=== PATIENT | male | born 1960 | race Caucasian/White ===

== ENCOUNTER 2017-10-02 11:00 | Emergency (ER) | payer OTHER, SELFPAY ==
[2017-10-02 11:01] VITALS: BP 147/84; PULSE 75; RESP 18; TEMP 36.6; O2SAT 95; BMI 38.7
--- NOTE | 2017-10-02 11:04 | RAD_ITS ---
STUDY: X-RAY - RIGHT SHOULDER REASON FOR EXAM: Male, 57 years old. Right-sided shoulder pain. TECHNIQUE: Four view(s) of the shoulder. COMPARISON: Prior comparison studies are not available for review at this time. FINDINGS: There is mild degenerative arthrosis of the glenohumeral articulation. There is degenerative arthrosis of the acromioclavicular joint without inferior osseous spur formation. Normal acromion. There is an old fracture of the midclavicle. There is demineralization of the humerus and visualized osseous structures. The soft tissue structures are unremarkable. The patient has had previous surgery on the cervical spine. There are multiple old right-sided rib fractures. The visualized right lung appears to be clear. RAD/Shoulder min 2 Views IMPRESSION: 1. Degenerative arthropathy of the right shoulder. 2. Probably old fractures of the right clavicle and right-sided ribs. 3. Sequela of previous surgery on the cervical spine. Electronically Signed: Samantha Coleman MD at 11:53 EDT , Service support ,
--- NOTE | 2017-10-02 12:07 | RAD_ITS ---
STUDY: X-RAY - LEFT KNEE REASON FOR EXAM: Male, 57 years old. Status post fall TECHNIQUE: 4 view(s) of the knee. COMPARISON: None. FINDINGS: Normal visualized distal femur. There is demineralization of the tibia and fibula. There is arthrosis of the proximal tibiofibular articulation. There is moderate degenerative arthrosis of the medial femorotibial compartment with moderate joint space narrowing. There is moderate degenerative arthrosis of the lateral femorotibial compartment with moderate joint space narrowing. There is moderate degenerative arthrosis of the patellofemoral articulation. There is mild superficial soft tissue edema. RAD/Knee 4 or More Views IMPRESSION: Degenerative arthrosis. No visualized fracture. Electronically Signed: Day Kasper MD at 13:43 EDT Tel , Service support ,
--- NOTE | 2017-10-02 12:17 | ED.VIS.GEN ---
History of Present Illness Chief Complaint: Fall Informant: Patient Onset: Days - 2 Context: Sudden Onset - Fall, pulled over by his dog while trying to walk it. Landed on his right shoulder and hit his left knee as well. Has been walking okay since then. Timing: Continuous Quality: Ache/throbbing Current Severity: Moderate Maximum Severity: Severe Worsened by: Moving Relieved by: Resting Narrative: States that this morning, he raised his right arm up over his head, and when he brought it back down he felt a sudden pop, with extreme pain in his right shoulder and radiating down to his hand. He said is the worst pain he has ever had. He called EMS, they put him on the caught and he is not sure what kind of movement he did, but it suddenly felt like it went back into socket and his pain went down significantly, the discomfort radiating down to his hand resolved. Past Medical History - Allergies and Home Meds Allergies/Adverse Reactions: Allergies iodine Allergy (Verified 10/02/17 11:04) Hives Penicillins Allergy (Verified 10/02/17 11:04) Hives Home Medications: Home Medications Medication Instructions Recorded Hydrocodone/Acetaminophen [[place] 1 - 2 ea PO 4X/DAY PRN PRN 3 Days 10/02/17 5-325 Tablet] #12 tab Primary Care Physician: Delilah Mayen [Primary Care Provider] - Past Medical History: None Lives: Spouse/ Significant Other Smoking Status: Never smoker Drugs: None Review of Systems All systems negative except as indicated Musculoskeletal: Reports: Extremity Pain - Right shoulder, left knee Neurological: Reports: Parasthesia - Transiently down right upper extremity, resolved now Physical Exam Vital Signs/Narrative: Vital Signs Temp Pulse Resp BP Pulse Ox 10/02/17 11:01 98 F 75 18 147/84 H 95 Inital Vital Signs reviewed: Yes General: Well nourished, Well developed Head: Normocephalic, Atraumatic Eyes: Perrl, EOMI ENT: Moist mucous membranes, No rhinorrhea Neck: Supple, Nontender Extremities: Tenderness - Right subacromial area. No deformities. No AC joint tenderness swelling. Able to abduct to 90?, but with pain. No anterior biceps tenderness. Negative Yergason. Left tibial tuberosity is tender and swollen, there is no deformity. Full range of motion of the knee without effusion. Healed anteromedial surgical scar. All ligaments stable including ACL and PCL, mild pain with stressing ACL but negative Danae. Negative posterior drawer. Skin: Normal color, No rash - No lacerations Neurological: Alert, Oriented x3, Cranial nerves II-XII grossly intact, Normal Strength, Normal Sensation, Normal Gait Psychological: Normal affect Diagnostic/Tx/Re-eval Impressions Shoulder X-Ray 10/02/17 11:04 IMPRESSION: 1. Degenerative arthropathy of the right shoulder. 2. Probably old fractures of the right clavicle and right-sided ribs. 3. Sequela of previous surgery on the cervical spine. Electronically Signed: Samantha Coleman MD at 11:53 EDT , Service support , 10/02/17 11:04 Xray Shoulder [Shoulder min 2 Views] [RAD] Stat 10/02/17 12:07 Knee 4 or More Views [RAD] Stat - Medical Decision Making Radiology agrees that right shoulder x-ray shows no acute abnormalities, namely no Hill-Sachs lesion and there is no dislocation. There is also no bony Bankart. He was placed in a sling and swath and given Vicodin, which helped some with the pain. On my interpretation his left knee x-ray is unremarkable, namely where he had the injury at the tibial tuberosity. He is able to ambulate without difficulty on it. He will be given a prescription for Vicodin, it is certainly possible that he dislocated and self reduced it, however it is also possible that he subluxed the joint and did not fully dislocate it. Will have him follow-up with orthopedics, he has seen Dr. Raygoza in the past. ED Disposition - Plan for ED Patient: Disposition: Home or Assisted Living Chief Complaint: Fall Diagnosis: Right shoulder injury, Contusion of left knee, initial encounter Instructions: ED Mechanical Fall, ED Dislocation Shoulder Redu, ED Sling and Swathe Prescriptions: Hydrocodone/Acetaminophen [[place] 5-325 Tablet] 1 - 2 ea PO 4X/DAY PRN PRN 3 Days #12 tab PRN Reason: Pain Referrals: Silverio Raygoza, [STAFF PHYSICIAN] - As soon as possible
--- NOTE | 2017-10-02 12:21 | ED.DCSUM_ITS ---
History of Present Illness Chief Complaint: Fall Informant: Patient Onset: Days - 2 Context: Sudden Onset - Fall, pulled over by his dog while trying to walk it. Landed on his right shoulder and hit his left knee as well. Has been walking okay since then. Timing: Continuous Quality: Ache/throbbing Current Severity: Moderate Maximum Severity: Severe Worsened by: Moving Relieved by: Resting Narrative: States that this morning, he raised his right arm up over his head, and when he brought it back down he felt a sudden pop, with extreme pain in his right shoulder and radiating down to his hand. He said is the worst pain he has ever had. He called EMS, they put him on the caught and he is not sure what kind of movement he did, but it suddenly felt like it went back into socket and his pain went down significantly, the discomfort radiating down to his hand resolved. Past Medical History - Allergies and Home Meds Allergies/Adverse Reactions: Allergies iodine Allergy (Verified 10/02/17 11:04) Hives Penicillins Allergy (Verified 10/02/17 11:04) Hives Home Medications: Home Medications Medication Instructions Recorded Hydrocodone/Acetaminophen [[place] 1 - 2 ea PO 4X/DAY PRN PRN 3 Days 10/02/17 5-325 Tablet] #12 tab Primary Care Physician: Delilah Mayen [Primary Care Provider] - Past Medical History: None Lives: Spouse/ Significant Other Smoking Status: Never smoker Drugs: None Review of Systems All systems negative except as indicated Musculoskeletal: Reports: Extremity Pain - Right shoulder, left knee Neurological: Reports: Parasthesia - Transiently down right upper extremity, resolved now Physical Exam Vital Signs/Narrative: Vital Signs Temp Pulse Resp BP Pulse Ox 10/02/17 11:01 98 F 75 18 147/84 H 95 Inital Vital Signs reviewed: Yes General: Well nourished, Well developed Head: Normocephalic, Atraumatic Eyes: Perrl, EOMI ENT: Moist mucous membranes, No rhinorrhea Neck: Supple, Nontender Extremities: Tenderness - Right subacromial area. No deformities. No AC joint tenderness swelling. Able to abduct to 90?, but with pain. No anterior biceps tenderness. Negative Yergason. Left tibial tuberosity is tender and swollen, there is no deformity. Full range of motion of the knee without effusion. Healed anteromedial surgical scar. All ligaments stable including ACL and PCL, mild pain with stressing ACL but negative Danae. Negative posterior drawer. Skin: Normal color, No rash - No lacerations Neurological: Alert, Oriented x3, Cranial nerves II-XII grossly intact, Normal Strength, Normal Sensation, Normal Gait Psychological: Normal affect Diagnostic/Tx/Re-eval Impressions Shoulder X-Ray 10/02/17 11:04 IMPRESSION: 1. Degenerative arthropathy of the right shoulder. 2. Probably old fractures of the right clavicle and right-sided ribs. 3. Sequela of previous surgery on the cervical spine. Electronically Signed: Samantha Coleman MD at 11:53 EDT , Service support , 10/02/17 11:04 Xray Shoulder [Shoulder min 2 Views] [RAD] Stat 10/02/17 12:07 Knee 4 or More Views [RAD] Stat - Medical Decision Making Radiology agrees that right shoulder x-ray shows no acute abnormalities, namely no Hill-Sachs lesion and there is no dislocation. There is also no bony Bankart. He was placed in a sling and swath and given Vicodin, which helped some with the pain. On my interpretation his left knee x-ray is unremarkable, namely where he had the injury at the tibial tuberosity. He is able to ambulate without difficulty on it. He will be given a prescription for Vicodin , it is certainly possible that he dislocated and self reduced it, however it is also possible that he subluxed the joint and did not fully dislocate it. Will have him follow-up with orthopedics, he has seen Dr. Raygoza in the past. ED Disposition - Plan for ED Patient: Disposition: Home or Assisted Living Chief Complaint: Fall Diagnosis: Right shoulder injury, Contusion of left knee, initial encounter Instructions: ED Mechanical Fall, ED Dislocation Shoulder Redu, ED Sling and Swathe Prescriptions: Hydrocodone/Acetaminophen [[place] 5-325 Tablet] 1 - 2 ea PO 4X/DAY PRN PRN 3 Days #12 tab PRN Reason: Pain Referrals: Silverio Raygoza, [STAFF PHYSICIAN] - As soon as possible
[2017-10-02] MEDS: HYDROcodone Bitartrate/Apap 5/325 Tablet PO (12:23)
[2017-10-02 12:54] VITALS: BP 139/85; PULSE 88; RESP 16; O2SAT 94
== END 2017-10-02 13:51 | disposition home or self-care (01) ==
PROVIDERS: Emergency Provider Emergency Medicine; Family Provider Family Medicine; PCP Family Medicine
DX: S80.02XA Contusion of left knee, initial encounter (principal); S49.91XA Unspecified injury of right shoulder and upper arm, initial encounter; W18.30XA Fall on same level, unspecified, initial encounter; Y93.K1 Activity, walking an animal; Y92.89 Other specified places as the place of occurrence of the external cause; Y99.8 Other external cause status
CPT/HCPCS: 73030; 73564; 99283

== ENCOUNTER → 2022-06-21 | Outpatient (CLI) | payer OTHER, SELFPAY ==
--- NOTE | 2022-06-21 | IMM_PTH ---
PATIENT: JAYASHREE MAGALLANES LOC: [facility] U#:[id number] AGE/SX: 61/M ROOM: RE06/21/[address]: Dr. Naresh Edmond MD : 1960 BED: DIS: 06/21/2022 SPEC #: [id number] RECD: 06/23/22 13:18 STATUS: LESTER REEulogio #: [id number] FAISAL: 06/21/22 00:[address]: Naresh Edmond DEPT: IMMUNOHISTOCHEMISTRY RECD BY: Rita Tarango ENTERED: 06/23/22 13:19 SP TYPE: IMMUNO OTHR DR: Dr. Delilah Mayen MD Tissues: D - PROSTATE LEFT F - PROSTATE LEFT Procedures: 34BE12 (add) P40 (add) 34BE12 (initial) PHYSICIAN & INSTITUTION [place] [id number] SPECIMEN INFORMATION: Tissue Source: D - Left prostate, apex, core biopsy, F - Left prostate, base, core biopsy Clinical Info: Elevated PSA Specimen Number: [id number] D & F CPT code: 32350, 32838 x3 METHODOLOGY: Deparaffinized sections of prefer/formalin-fixed tissue or PAP/DQ stained slides are incubated with monoclonal/polyclonal antibodies/oligonucleotide probes. Localization is made via biotin free immunoperoxidase method. Appropriate controls are performed and reacted as expected. Results on target cell population are indicated in the following table: RESULTS: ANTIBODY / CLONE RESULT Block D P40 (BC28) negative * 34BE12 (34BE12) negative * Block F P40 (BC28) negative 34BE12 (34BE12) negative *?Positive in the area of HGPIN. These tests were developed and their performance characteristics determined by [facility]. They may not have been cleared or approved by the U.S. Food and Drug Administration. The FDA has determined that such clearance or approval is not necessary. The above immunohistochemical/dualISH markers are ordered and reviewed by the Pathologist. INTERPRETATION: D. Left prostate, apex, core biopsy: Adenocarcinoma. Focal high-grade prostatic intraepithelial neoplasia (HGPIN). Focal atypical small acinar proliferation (MICHAEL). F. Left prostate, base, core biopsy: Adenocarcinoma. AL:brandt 06/24/2022
--- NOTE | 2022-06-21 08:00 | PROSBIL_PTH ---
PATIENT: JAYASHREE MAGALLANES LOC: [facility] U#:[id number] AGE/SX: 61/M ROOM: RE06/21/[address]: Dr. Naresh Edmond MD : 1960 BED: DIS: 06/21/2022 SPEC #: [id number] RECD: 06/22/22 08:32 STATUS: LESTER [place]UST[place] #: [id number] FAISAL: 06/21/22 08:[address]: Naresh Edmond DEPT: SURGICAL PATHOLOGY RECD BY: Elvi Levy ENTERED: 06/22/22 08:33 SP TYPE: PROST BX CARMELINA DR: Dr. Delilah Mayen MD Tissues: A - PROSTATE RIGHT B - PROSTATE RIGHT C - PROSTATE RIGHT D - PROSTATE LEFT E - PROSTATE LEFT F - PROSTATE LEFT Procedures: PROSTATE BX HEADER OPERATION: Prostate biopsy PRE-OP DIAGNOSIS: Elevated PSA TISSUE SUBMITTED: A - Right apex, B - Right mid, C - Right base, D - Left apex, E - Left mid, F - Left base MICROSCOPIC DIAGNOSIS A. Right prostate, apex, core biopsy: Prostatic adenocarcinoma. Rachelle grade: 4+3=7 Number of cores involved: 2/2 Proportion of tissue involved: ~40% Perineural invasion: Not identified. Greatest tumor length: 0.8 cm B. Right prostate, mid, core biopsy: Prostatic tissue, negative for malignancy. C. Right prostate, base, core biopsy: Focal high-grade prostatic intraepithelial neoplasia (HGPIN). D. Left prostate, apex, core biopsy: Prostatic adenocarcinoma. Rachelle grade: 3+3=6 Number of cores involved: 1/2 Proportion of tissue involved: <5% Perineural invasion: Present, focal. Greatest tumor length: <0.1 cm Focal high-grade prostatic intraepithelial neoplasia (HGPIN). Focal atypical small acinar proliferation (MICHAEL). See comment. E. Left prostate, mid, core biopsy: Prostatic adenocarcinoma. Rachelle grade: 4+3=7 Number of cores involved: 2/2 Proportion of tissue involved: ~70% Perineural invasion: Present, focal. Greatest tumor length: 0.6 cm F. Left prostate, base, core biopsy: Prostatic adenocarcinoma. Dowell grade: 3+3=6 Number of cores involved: 1/2 Proportion of tissue involved: <5% Perineural invasion: Not identified. Greatest tumor length: 0.1 cm Focal high-grade prostatic intraepithelial neoplasia (HGPIN). See comment. SJ:brandt 06/23/2022 COMMENT D & F. Immunohistochemistry ([id number]) supports the above diagnosis. MICROSCOPIC DESCRIPTION Slides are reviewed. GROSS DESCRIPTION A - Received is one container designated prostate, right apex. The specimen consists of two elongated fragments of light alicea-white soft tissue each measuring 1.0 cm in length and 0.1 cm in diameter. The specimen is totally submitted in one cassette. B - Received is one container designated prostate, right mid. The specimen consists of two elongated fragments of light alicea-white soft tissue each measuring 1.0 cm in length and 0.1 cm in diameter. The specimen is totally submitted in one cassette. C - Received is one container designated prostate, right base. The specimen consists of two elongated fragments of light alicea-white soft tissue each measuring 1.0 cm in length and 0.1 cm in diameter. The specimen is totally submitted in one cassette. D - Received is one container designated prostate, left apex. The specimen consists of two elongated fragments of light alicea-white soft tissue each measuring 1.0 cm in length and 0.1 cm in diameter. The specimen is totally submitted in one cassette. E - Received is one container designated prostate, left mid. The specimen consists of two elongated fragments of light alicea-white soft tissue each measuring 1.5 cm in length and 0.1 cm in diameter. The specimen is totally submitted in one cassette. F - Received is one container designated prostate, left base. The specimen consists of two elongated fragments of light alicea-white soft tissue each measuring 1.0 cm in length and 0.1 cm in diameter. The specimen is totally submitted in one cassette. / LUIS CARLOS:brandt 06/22/2022 TC:0 [facility]: [id number] x6
== END | disposition home or self-care (01) ==
PROVIDERS: PCP Family Medicine; Referring Provider Urology; Visit Provider Urology
DX: C61 Malignant neoplasm of prostate (principal); R97.20 Elevated prostate specific antigen [PSA]
CPT/HCPCS: 88305; 88341; 88342; G0416

== ENCOUNTER → 2022-07-01 | Outpatient (CLI) | payer OTHER, SELFPAY ==
--- NOTE | 2022-07-01 09:54 | NM_ITS ---
CLINICAL: 61-year-old male with history of recent diagnosis of primary prostate carcinoma. WHOLE BODY 99m Tc MDP RADIONUCLIDE BONE SCINTIGRAPHY COMPARISON: None available FINDINGS: Following the intravenous administration of 25.2 mCi of 99m Tc MDP, whole body bone images reveal: 1. Increased radiopharmaceutical concentration is defined in the acromioclavicular and glenohumeral compartments of both shoulders, the left knee, the posterior compartment of the right ankle, the mid cervical spine posteriorly on the left, the sixth through 12th thoracic vertebra posteriorly on the left and right, third-fourth lumbar vertebra posteriorly on the right and left. 2. The remaining skeletal structures are scintigraphically unremarkable with normal-appearing renal images and urinary bladder activity identified. There is calcification of the right and left costochondral junction. NM/Bone Scan Whole Body IMPRESSION: 1. The increase in radiopharmaceutical described above in the bilateral shoulders, the left knee, the right ankle, the cervical, thoracic and lumbar spine is commensurate with degenerative arthritis. 2. No other scintigraphic elements are defined. There is no definitive scintigraphic evidence of diffuse axial skeletal metastatic disease on the current examination. Electronically Signed: Jong Veras, at 0:37 EST ,
== END | disposition home or self-care (01) ==
LOC: NM 09:53
PROVIDERS: PCP Family Medicine; Referring Provider Urology; Visit Provider Urology
DX: C61 Malignant neoplasm of prostate (principal)
CPT/HCPCS: 78306; A9503

== ENCOUNTER 2022-08-06 07:32 | Observation (INO) | payer OTHER, SELFPAY ==
--- NOTE | 2022-08-02 08:47 | EKG12_ITS ---
Test Reason : PREOP Blood Pressure : / mmHG Vent. Rate : 071 BPM Atrial Rate : 071 BPM P-R Int : 174 ms QRS Dur : 106 ms QT Int : 394 ms P-R-T Axes : 044 -07 021 degrees QTc Int : 428 ms Normal sinus rhythm Normal ECG Confirmed by HERBER MONTES DE OCA MD ([id number]), medical transcription editor JAVED COON ([id number]) on 08/03/2022 8:59:20 AM Referred By: FRANCISCA Confirmed By:HERBER MONTES DE OCA MD
[2022-08-02 09:25] LABS: Hematocrit 47.1 % (40-54); Hemoglobin 16.1 g/dL (13.0-16.5); Mean Corp Hgb Conc 34.2 g/dL (32-36); Mean Corpuscular Volume 87.9 fL (80-94); Mean Platelet Vol. 8.7 fl (6.2-12.0); Platelet Count 283 K/mm3 (150-450); RBC Distribution Width CV 12.5 % (11.6-14.6); RBC Distribution Width SD 40.3 fl (35.1-43.9); Red Blood Count 5.36 M/mm3 (4.6-6.2); White Blood Count 6.5 K/mm3 (4.4-11.0)
[2022-08-06] VITALS (12 sets, daily range): BP systolic 109–142; BP diastolic 62–83; PULSE 63–97; RESP 16–20; TEMP 36.1–37.6; O2SAT 94–98; BMI 40.5
--- NOTE | 2022-08-06 | PROST_PTH ---
PATIENT: JAYASHREE MAGALLANES LOC: [facility] U#:[id number] AGE/SX: 62/M ROOM: MT315 RE08/06/[address]: Dr. Naresh Edmond MD : 1960 BED: 1 DIS: 08/07/2022 SPEC #: [id number] RECD: 08/06/22 17:19 STATUS: LESTER MONTOYAEulogio #: [id number] FAISAL: 08/06/22 00:[address]: Naresh Edmond DEPT: SURGICAL PATHOLOGY RECD BY: Fernando Saavedra ENTERED: 08/09/22 09:19 SP TYPE: PROSTATE OTHR DR: Dr. Delilah Mayen MD Tissues: A - Lymph node of pelvis, NOS B - Lymph node of pelvis, NOS C - Adipose tissue D - Prostate, NOS Procedures: Surgery Specimen Level III Surgery Specimen Level V Surgery Specimen Level HEADER OPERATION: Lap robotic radical prostatectomy PRE-OP DIAGNOSIS: Rachelle 7 prostate cancer TISSUE SUBMITTED: A ? Left lymph node bundle, B ? Right lymph node bundle, C ? Fat over prostate, D - Prostate MICROSCOPIC DIAGNOSIS A. Left lymph node bundle, regional dissection: Nine out of nine lymph nodes, negative for metastatic carcinoma. B. Right lymph node bundle, regional dissection: Two out of two lymph nodes, negative for metastatic carcinoma. C. Fat over prostate: Negative for carcinoma. D. Prostate, radical prostatectomy: Prostatic adenocarcinoma. See cancer summary in the comment section. SJ:brandt 08/11/2022 COMMENT PROSTATE CANCER (RADICAL) SUMMARY: Procedure: Radical Prostatectomy Prostate Size: Weight: 70.4 gm Size: 4.0 cm transversely, 4.5 cm anterior-posteriorly and 4.0 cm craniocaudally Histologic Type: Acinar adenocarcinoma Histologic Grade: Grade group 4 (Rachelle score 5+3=8) Tertiary pattern 4 is also noted. Percent of Pattern 4: ~5% Percent of Pattern 5: ~80% Intraductal Carcinoma: Not identified Tumor Quantitation: Estimated percentage of prostate involved by tumor: ~5% Tumor size: Tumor involves left lobe prostate. It is measured microscopically and measures 1.6 x 1.5 x 1.0 cm. Extraprostatic Extension: Not identified Urinary Bladder Neck Invasion: Not identified Seminal Vesicle Invasion: Not identified Lymphvascular Invasion: Not identified Perineural Invasion: Present, focal Margins: Focally involved by invasive carcinoma. Linear length of positive margin: ~3 mm Location of positive margin: Left apical Rachelle pattern at positive margin: 3+4=7 Treatment Effect: No known presurgical therapy. Regional Lymph Nodes: Number of lymph nodes involved by carcinoma: 0 Total number of lymph nodes examined: 11 Additional Pathologic Findings: Focal high-grade prostatic intraepithelial neoplasia (HGPIN). Acute and chronic inflammation. Benign prostatic hyperplasia, glandular and stromal type. PATHOLOGIC STAGE: pT2 pN0 pMx The above summary is in compliance with [employer] (CAP) Cancer Protocols Checklist and [place] Joint Committee on Cancer (AJCC), Staging Manual, 8th Ed. Please make reference to previous specimen ([id number]) right prostate apex and left prostate apex, mid and base, core biopsies with diagnosis of ?prostatic adenocarcinoma.? Case has been reviewed in consultation with Dr. Short who concurs with the above diagnosis. IDC:[email or web address] MICROSCOPIC DESCRIPTION Slides are reviewed. GROSS DESCRIPTION A - Received in fixative is one container labeled with the patient's name and designated left lymph node bundle. The specimen consists of multiple pieces of yellow adipose tissue containing nodules consistent with lymph nodes measuring in aggregate 3.0 x 3.5 x 0.3 cm. The entire specimen is submitted in two cassettes. B - Received in fixative is one container labeled with the patient's name and designated right lymph node bundle. The specimen consists of a piece of yellow adipose tissue containing a nodule measuring 3.0 x 3.0 x 1.0 cm. The nodule consistent with lymph node measures 2.0 cm in greatest dimension. The entire specimen is submitted in two cassettes as follows: 1 ? nodule consistent with lymph node, 2 ? rest of the specimen. C - Received in fixative is one container labeled with the patient's name and designated fat over prostate. The specimen consists of multiple pieces of yellow adipose tissue that in aggregate measure 3.5 x 4.0 x 0.8 cm. No mass lesion is identified. Music Composer sections are submitted in one cassette. D - Received in fixative is one container labeled with the patient's name and designated prostate. The specimen consists of a radical prostatectomy specimen consisting of prostate and bilateral seminal vesicles and vas deferens. The specimen weighs 70.4 gm. The prostate measures 4.0 cm transversely, 4.5 cm anterior-posteriorly and 4.0 cm craniocaudally. The right seminal vesicle measures 3.0 x 2.5 x 1.5 cm and right vas deferens measures 2.5 cm in length and 0.5 cm in diameter. The left seminal vesicle measures 2.0 x 1.5 x 1.0 cm and the left vas deferens measures 3.0 cm in length and 0.5 cm in diameter. The prostate is inked as follows: anterior surface - yellow, posterior surface - black, right lateral surface - blue, left lateral surface - green. Sections do not reveal any obvious mass lesions. The bilateral seminal vesicles and vas deferens are inked as follows: Posterior surface bilateral seminal vesicle and vas deferens - black, anterior surface right seminal vesicle and vas deferens - blue and anterior left seminal vesicle and vas deferens - green. Sections do not reveal any obvious mass lesions. Music Composer sections are submitted in 20 cassettes as follows: 1 - right seminal vesicle and vas deferens, 2 - left seminal vesicle and vas deferens, 3 - apical (urethral) margin, enface, 4 - bladder neck and basal portion of prostate margin, enface, 5-9 - apical portion prostate, 10-13 - middle portion prostate, 14-20 - basal portion prostate. / AL:brandt 08/09/2022 More sections are submitted in cassettes -30. / AL:brandt 08/10/2022 TC:0 CPT: 02822, 69424 x2, 82159
[2022-08-06] MEDS: Lactated Ringers 1,000 ML 15 ML IV (06:38)
[2022-08-06] MEDS: Cefazolin 2 GM in 0.9% Normal Saline 100 ML IV (07:30)
--- NOTE | 2022-08-06 07:39 | HP.PCM_ITS ---
HPI - General General Date of Admission: 08/06/22 Chief Complaint: Prostate cancer HPI Narrative JAYASHREE MAGALLANES, is a 62 M who presents for radical prostatectomy he has mild multiple bilateral areas with Rachelle 7 prostate cancer and regular proceed with a radical prostatectomy with bilateral nerve sparing or stent the risk of surgery includes loss of erections and bladder control problems. Also do a lymph node dissection. [facility] Medical History (Updated 08/06/22 @ 07:[address] Naresh Edmond MD) Cancer History of stress test Hypertension Non-smoker Prostate disease Shortness of breath on exertion Wears glasses Home Medications albuterol sulfate 90 mcg/actuation aerosol inhaler 2 puff inhalation PRN PRN SOB 07/23/22 [History Last Taken 08/04/22] losartan 25 mg tablet 25 mg PO DAILY HTN 07/23/22 [History Last Taken 08/06/22 05:00] omega 5-lkn-fgh-fish oil 1,200 mg (144 mg-216 mg) capsule (Fish Oil) 1 cap PO DAILY supplement 07/23/22 [History Last Taken 08/04/22] vitamin E (dl, acetate) 180 mg (400 unit) capsule 180 mg PO DAILY supplement 07/23/22 [History Last Taken 08/04/22] ciprofloxacin HCl 500 mg tablet (Cipro) 500 mg PO BID #20 tabs 08/06/22 [Rx Last Taken Unknown] docusate sodium 100 mg capsule (Colace) 100 mg PO BID #20 caps 08/06/22 [Rx Last Taken Unknown] oxycodone-acetaminophen 5 mg-325 mg tablet (Endocet) 1 tab PO Q6H PRN pain 7 days #14 tabs 08/06/22 [Rx Last Taken Unknown] Allergy/AdvReac Type Severity Reaction Status Date / Time iodine Allergy Hives Verified 08/06/22 06:16 Penicillins Allergy Hives Verified 08/06/22 06:16 Surgical History (Updated 07/23/22 @ 11:09 by Debbie Tena) History of colonoscopy History of knee surgery History of neck surgery Social History Smoking Status: Never smoker Vital Signs Vital Signs Vital Signs: 08/06/22 06:19 08/06/22 06:21 Temperature 97.6 F L Temperature Source Temporal Pulse Rate 71 Respiratory Rate 18 Respiratory Pattern Normal Blood Pressure 141/82 H Blood Pressure Mean 101 Blood Pressure Source Monitor Blood Pressure Position Semi-Fowlers Blood Pressure Location Right Arm Pulse Ox 97 Oxygen Delivery Method Room Air Weight Weight: 117.39 kg Body Mass Index (BMI) 40.5 Results Lab / Micro Data Result Diagrams: 08/02/22 09:13
--- NOTE | 2022-08-06 07:39 | DCINST_ITS ---
Discharge Instructions Diet Discharge Diet: No restrictions, Light diet - advance as tolerated and Soft diet Activity Discharge Activity: Return to Normal Activity Return to work on:: 09/10/22 May shower in (days): 1 Dressing / Incision Call your doctor if your incision/area has: Continuous Slow Oozing Suture Line Care: Avoid Pulling/Pushing and Avoid Pinching/Bending Catheter: Knowles to leg bag and Knowles to large bag Drain: [place] Follow Up Care Please Follow Up With: Naresh Edmond MD When: call for appt. Test Results: Test results from this visit will be discussed in further detail at your follow- up appointment, if applicable. Discharge Plan Admission Primary Reason for Your Visit: Radical Prostatectomy Attending Provider: Naresh Edmond Primary Care Provider: Delilah Mayen Instructions Patient Instructions: Prostate Cancer Radical ..., Radical Prostatectomy Dc Discharge Orders/Prescriptions Prescriptions: New ciprofloxacin HCl [Cipro] 500 mg tablet 500 mg PO BID Qty: 20 0RF docusate sodium [Colace] 100 mg capsule 100 mg PO BID Qty: 20 0RF oxycodone-acetaminophen [Endocet] 5-325 mg tablet 1 tab PO Q6H PRN (Reason: pain) 7 Days Qty: 14 0RF Continued losartan 25 mg tablet 25 mg PO DAILY albuterol sulfate 90 mcg/actuation HFA aerosol inhaler 2 puff INHALATION PRN PRN (Reason: SOB) vitamin E (dl, acetate) 180 mg (400 unit) Capsule 180 mg PO DAILY omega 1-eqy-mmk-fish oil [Fish Oil] 1,200 (144-216) mg Capsule 1 cap PO DAILY Referrals / Follow Up: Delilah Mayen MD [Primary Care Provider] - Naresh Edmond MD [Med Staff - Active Staff] - Disposition Disposition (needs filled in before D/C Order can be placed): Home, Self Care
--- NOTE | 2022-08-06 11:33 | PCM.OPRPT ---
Report of Operation Date of Procedure: 08/06/22 Pre-Operative Diagnosis: Prostate cancer Post-Operative Diagnosis: The same Surgery/Procedure Performed:: Laparoscopic robotic assisted radical prostatectomy bilateral nerve sparing, and bilateral pelvic lymph node dissection Description of Surgical Findings:: Indication this is a 62-year-old male who was found to have an elevated PSA and prostate cancer and he is elected to undergo radical prostatectomy for curative intent understands is possible with surgery removal of the prostate there is potential for loss of erections loss of bladder control and also potential that it may not cure his cancer and he may need more treatment such as other surgeries radiation hormone therapy in the future. Patient was taken back to the operating room at a smooth induction of general anesthesia he was placed supine on the table we put him in lithotomy with the legs in stirrups make sure the pressure points were padded and then he was put in airbag we then put the table in Trendelenburg the test the patient and there is patient was secured to the table we then made the patient was then prepped and draped in usual fashion made a small incision above the umbilicus in the mid abdomen probed the wound with a hemostat I found the Veress to I found the peritoneal cavity and then with a Veress needle advanced a Veress needle into the peritoneal cavity and filled the peritoneal cavity with CO2 gas I then placed the right arm trocar into left arm trocars air seal port and workers compensation claims assistant suction port. I first reflected the sigmoid off the lateral wall this allowed the sigmoid to be retracted out of the deep pelvis I then went down to the deep pelvis opened up the peritoneum over the seminal vesicles and vas deferens it was somewhat of a difficult dissection because the patient was fairly obese with a BMI of 40 but is able to dissect out the seminal vesicle and vas deferens on both sides and then dissect below the prostate and then pulled out we then created the space of Retzius and dropped the bladder and put the bladder on traction I then went to the pelvic lymph nodes I went first to the left side identify the iliac artery and vein all the lymph nodes are cleaned off the iliac artery and vein up to the noted cloque clean up all the lymph nodes off the pelvic sidewall clean of all the lymph nodes coming down to the pelvic sidewall down to the obturator nerve and then after this was done I used the vessel sealer to control blood vessels some Floseal was placed in the fossa on that side we then went to the right pelvic lymph nodes again we dissected dissected out the pelvic lymph nodes off the right iliac artery and vein up to the noted cloque down to the pelvic sidewall down to the obturator nerve and then after this space was entirely cleared pelvic lymph nodes then we placed and Floseal. I then cleaned the fat off the prostate the fat of the prostate was sent off a separate specimen and fat over prostate and then I incised the pelvic fascia on the right side the pelvis flexion the left side dissected they did up to the apex and then dissected the dorsal vein complex we then placed a suture ligation and dorsal vein complex complex with the 0 Vicryl stitch and then we pulled between the bladder and the prostate dissected between the bladder and prostate until we came to the catheter deflated the balloon pulled the catheter back and then dissected between the bladder and prostate until we got to the posterior aspect where we encountered the vas deferens and seminal vesicles which were already dissected out and then the placed a traction on the prostate laterally I incised the endopelvic fascia over the prostate swept it off laterally and then identified the neurovascular bundle running underneath the prostate on the lateral edge I then came to the pedicle of the prostate in the right side with a vessel sealer I then released the neurovascular bundle on the right side all the way up to the apex of the pelvis perfectly this came out very nicely there was no abnormal adherence. And then went to the left side and we came to the pedicle in the left side with the vessel sealer we incised the endopelvic fascia over the prostate and the left side swept it off laterally identified the neurovascular bundles and then sharply dissected neurovascular bundles all the way up to the left side all the way to the apex I then transected to the dorsal vein complex and then transected through the urethra prostate was then placed in Endo Catch bag we then performed the anastomosis between the bladder and the urethra but prior to this we obtain hemostasis in the pelvis with pinpoint cautery and also used Floseal in the pelvis to control for any bleeding. Then at this point anastomosis was done between the bladder neck and the urethra with double-arm suture we used 3-0 Vicryl and a V-Loc stitch in and ran from the 12:00 to 6:00 to complete a perfect anastomosis we placed a new catheter into the bladder it was an 18 [place] tip catheter we flushed the bladder check for leakage there was no leakage but 10 cc in the balloon and then secured to back and then flush the catheter out to make sure the clots were robot was then undocked we then extracted the prostate through the umbilical port and then we closed the umbilical port and then we closed all the other ports with subcuticular stitches patient anesthetic was reversed he was taken back to the PACU in good condition surgery went really well nice dissection on both sides good nerve sparing on both sides and a nice anastomosis. Surgeon: Naresh Edmond Type of Anesthesia: General Drains: HO Estimated Blood Loss (mL): 350 Admit VTE Documentation VTE Present on Admission: No VTE Mechan Device Prophylaxis: SCD's VTE Pharm Prophylaxis ordered?: No
[2022-08-06] MEDS: Bupivacaine 0.25% 30 ML Vial (11:34)
[2022-08-06] MEDS: Ketorolac 15 MG/ML Vial IV ×2 (13:07→17:42)
[2022-08-06] MEDS: Ciprofloxacin 400 MG/200 ML BAG 200 MG IV (14:59)
[2022-08-06] MEDS: Lactated Ringers 1,000 ML 125 ML IV (14:59)
[2022-08-06] MEDS: HYDROcodone Bitartrate/Apap 5/325 Tablet PO (21:51)
[2022-08-06] MEDS: Docusate Sodium 100 MG Capsule 200 MG PO (21:52)
[2022-08-07] MEDS: Ciprofloxacin 400 MG/200 ML BAG 200 MG IV (01:42)
[2022-08-07] MEDS: Ketorolac 15 MG/ML Vial IV ×2 (01:42→05:45)
[2022-08-07 01:56] VITALS: BP 107/65; PULSE 81; RESP 18; TEMP 37.3; O2SAT 94
[2022-08-07 04:32] VITALS: TEMP 36.6
[2022-08-07] MEDS: HYDROcodone Bitartrate/Apap 5/325 Tablet PO (04:34)
[2022-08-07] MEDS: Ondansetron 4 MG/2 ML Vial IV (04:34)
[2022-08-07] MEDS: 0.9% Saline Lock 10 ML Syringe IV ×2 (04:34→05:45)
--- NOTE | 2022-08-07 07:10 | PCM.PN.GU ---
Subjective Subjective Status post radical prostatectomy surgery went really well overnight he did very well, just minor soreness, urine is clear, he can go home today with a Knowles to a leg bag the nurses will teach him how to do catheter care and teach him how to use a leg bag and a large bag. He will need to see me in 2 weeks for catheter removal and checkup Objective Data Objective Data Vital Signs: Vital Signs Temp Pulse Resp BP Pulse Ox O2 Del Method O2 Flow Rate 98 F 81 18 107/65 94 Room Air 2 08/07/22 04:32 08/07/22 01:56 08/07/22 01:56 08/07/22 01:56 08/07/22 01:56 08/07/22 01:56 08/06/22 16:00 Oxygen Flow Rate (L/min) 2 Oxygen Delivery Method Room Air Weight: 117.39 kg Body Mass Index (BMI) 40.5 Intake & Output: Intake and Output for Last 24 Hours 08/05/22 08/06/22 08/07/22 23:59 23:59 23:59 Intake Total 2857.91 / 2857.91 200 / 200 Output Total 905 / 905 300 / 300 Balance 2.91 / 1951.91 -100 / -100 Lab / Micro Data Result Diagrams: 08/02/22 09:13
[2022-08-07 08:36] VITALS: BP 121/79; PULSE 70; RESP 18; TEMP 36.4; O2SAT 98
[2022-08-07 08:48] VITALS: BP 121/79; PULSE 70; RESP 18; TEMP 36.4; O2SAT 98
[2022-08-07 08:49] VITALS: BMI 40.5
[2022-08-07 09:00] VITALS: RESP 18
== END 2022-08-07 10:09 | disposition home or self-care (01) ==
LOC: SDC 10:30 → MS3 10:30
PROVIDERS: Anesthesiology; Admitting Provider Urology; PCP Family Medicine; Referring Provider Urology; Visit Provider Urology
PROC: 0VT04ZZ Resection of Prostate, Percutaneous Endoscopic Approach (ICD-10-PCS; CPT 55866; principal; 2022-08-06 07:10)
DX: C61 Malignant neoplasm of prostate (principal); I10 Essential (primary) hypertension; Z79.899 Other long term (current) drug therapy; R06.02 Shortness of breath
CPT/HCPCS: 55866; 00865; 36415; 85027; 86850; 86900; 86901; 88304; 88307; 88309; 93005; 96361; 96365; 96366; 96375; 96376; 99221; J7120; A4216; G0378; J0744; J2405

== ENCOUNTER → 2022-11-08 | Outpatient (CLI) | payer OTHER, SELFPAY ==
[2022-11-08 14:31] LABS: PSA,Total- Diagnostic < 0.01 ng/mL (0.0-4.0)
== END | disposition home or self-care (01) ==
PROVIDERS: PCP Family Medicine; Referring Provider Urology; Visit Provider Urology
DX: C61 Malignant neoplasm of prostate (principal)
CPT/HCPCS: 36415; 84153

== ENCOUNTER → 2023-02-28 | Outpatient (CLI) | payer OTHER, SELFPAY ==
[2023-02-28 09:31] LABS: PSA,Total- Diagnostic < 0.01 ng/mL (0.0-4.0)
== END | disposition home or self-care (01) ==
PROVIDERS: PCP Nurse Practitioner Family; Referring Provider Nurse Practitioner; Visit Provider Nurse Practitioner
DX: C61 Malignant neoplasm of prostate (principal)
CPT/HCPCS: 36415; 84153

== ENCOUNTER → 2024-06-25 | Outpatient (CLI) | payer OTHER, SELFPAY ==
[2024-06-25 09:37] LABS: PSA,Total- Diagnostic < 0.01 ng/mL (0.0-4.0)
== END | disposition home or self-care (01) ==
LOC: LAB 08:22
PROVIDERS: PCP Nurse Practitioner Family; Referring Provider Nurse Practitioner; Visit Provider Nurse Practitioner
DX: C61 Malignant neoplasm of prostate (principal)
CPT/HCPCS: 36415; 84153

== ENCOUNTER → 2024-12-24 | Outpatient (CLI) | payer OTHER, SELFPAY ==
[2024-12-24 09:46] LABS: PSA,Total- Diagnostic < 0.02 ng/mL (0.00-4.00)
== END | disposition home or self-care (01) ==
PROVIDERS: PCP Nurse Practitioner Family; Referring Provider Urology; Visit Provider Urology
DX: C61 Malignant neoplasm of prostate (principal)
CPT/HCPCS: 36415; 84153